=== PATIENT | male | born 1960 | race Caucasian/White ===

== ENCOUNTER → 2022-06-13 16:25 | Outpatient (CLI) | payer OTHER, SELFPAY | PROVIDERS: PCP Family Medicine; Referring Provider Family Medicine; Visit Provider Internal Medicine | DX: Z23 Encounter for immunization (principal) | CPT/HCPCS: 90471; 90686 ==

== ENCOUNTER → 2022-08-27 07:10 | Outpatient (CLI) | payer OTHER, SELFPAY ==
[2022-08-27 09:27] LABS: Add Manual Diff / Slide Review NO; Basophils Absolute Auto 0 /uL (0-100); Eosinophils Absolute Auto 100 /uL (0-450); Eosinophils Percent Auto 3.1 % (2-4); Hematocrit 41.4 % (41-53); Hemoglobin 14.1 g/dL (13.5-17.5); Lymphocytes Absolute Auto 1600 /uL (1100-4500); Lymphocytes Percent Auto 35.3 % (25-40); Mean Corpuscular HGB Conc 34.1 % (30-36); Mean Corpuscular Hemoglobin 29.8 PG (26-34); Mean Corpuscular Volume 87.4 fL (80-100); Monocytes Absolute Auto 600 /uL (0-900); Monocytes Percent Auto 12.2 % (3-14); Neutrophils Absolute Auto 2200 /uL (1500-7000); Neutrophils Percent Auto 48.4 % (50-75); Platelet Count 235 X10^3/uL (150-400); Red Blood Cell Count 4.73 X10^6/uL (4.5-5.9); Red Cell Distribution Width 14.9 % (11.6-14.8); White Blood Cell Count 4.5 X10^3/uL (4.5-11.0)
[2022-08-27 10:19] LABS: Alanine Aminotransferase 17 IU/L (<50); Albumin 4.3 g/dL (3.5-5.0); Albumin Globulin Ratio 1.7 (1.0-2.8); Alkaline Phosphatase 73 U/L (38-126); Aspartate Aminotransferase 24 IU/L (17-59); BUN Creatinine Ratio 19.4 (6-22); Bilirubin Total 0.7 mg/dL (0.2-1.3); Blood Urea Nitrogen 20 mg/dL (9-20); Calcium 9.3 mg/dL (8.4-10.2); Carbon Dioxide 28 mmol/L (22-32); Chloride 100 mmol/L (98-107); Cholesterol 220 mg/dL (140-199); Estimated Glomerular Filt Rate > 60 mL/min (>60); Globulin 2.6 g/dL (1.7-4.1); Glucose 92 mg/dL (80-110); HDL Cholesterol 77 mg/dL (40-60); HEMOLYSIS < 15 (0-50); LDL Cholesterol Calculated 131 mg/dL (<100); Potassium 4.6 mmol/L (3.4-5.1); Sodium 138 mmol/L (137-145); Total Protein 6.9 g/dL (6.3-8.2); Triglycerides 60 mg/dL (35-150)
[2022-08-27 10:50] LABS: Prostate Specific Antigen Scrn 4.53 ng/mL (0.1-4.0)
== END ==
PROVIDERS: PCP Family Medicine; Referring Provider Family Medicine; Visit Provider Family Medicine
DX: E78.5 Hyperlipidemia, unspecified (principal); I21.9 Acute myocardial infarction, unspecified; K21.9 Gastro-esophageal reflux disease without esophagitis; Z12.5 Encounter for screening for malignant neoplasm of prostate
CPT/HCPCS: 36415; 80053; 80061; 85025; G0103

== ENCOUNTER 2024-06-01 18:59 | Emergency (ER) | payer OTHER, SELFPAY ==
[2024-06-01 19:07] VITALS: BP 157/72; PULSE 67; RESP 16; TEMP 36.4; O2SAT 100; BMI 24.4
--- NOTE | 2024-06-01 21:13 | ED.BACK ---
HPI - Back Pain/Injury General Chief Complaint: Urogenital-Male Stated Complaint: back px, sent by [facility] triage nurse Time Seen by Provider: 06/01/24 20:37 Source: patient History of Present Illness HPI Narrative: Patient presents for 2 weeks of left-sided flank pain. States that pain is intermittent, worse with movement, [id number] medications do not improve this. Patient states that he was told by the [facility] advice line that he should come to the ER for evaluation. Denies difficulty urinating, fevers, other complaints at this time. Related Data Home Medications Medication Instructions Recorded Confirmed fluticasone propionate 50 1 spray intranasal DAILY 07/11/22 09/03/22 mcg/actuation nasal spray,suspension (Allergy Relief (fluticasone)) oxybutynin chloride 10 mg 10 mg PO TID 07/11/22 09/03/22 tablet,extended release 24 hr Lacto 21-Bifido [id number]-B12 [up4 PO 09/03/22 09/03/22 Probiotics Men's] magnesium PO 09/03/22 09/03/22 omega-3 fatty acids [Fish Oil] PO 09/03/22 09/03/22 Previous Rx's Medication Instructions Recorded sertraline 100 mg tablet 100 mg PO DAILY #90 tabs 10/28/22 tamsulosin 0.4 mg capsule 0.4 mg PO DAILY #90 caps 10/28/22 pantoprazole 40 mg tablet,delayed 40 mg PO DAILY #90 tabs 02/06/23 release bupropion HCl 300 mg 24 hr tablet, 300 mg PO QAM #90 tabs 04/15/23 extended release Allergies Allergy/AdvReac Type Severity Reaction Status Date / Time ampicillin Allergy Severe Anaphylaxis Verified 06/01/24 19:12 Penicillins Allergy Severe Anaphylaxis Verified 06/01/24 19:12 Patient History Medical History Screening for prostate cancer Hyperlipidemia Osteoarthritis (~1998) Depression (~1998) Stroke (~1988) Fractures Chronic back pain (~1984) Ankle pain (~1997) Mumps (~1966) Measles (~1966) Chicken pox (~1965) Genital warts (~1999) Benign prostatic hyperplasia (~1997) GERD (gastroesophageal reflux disease) (~1998) Ascending aortic aneurysm (~2018) Myocardial infarction (~1998) Cardiac arrhythmia (~1998) Melanoma (~1998) Surgical History Anesthesia S/P AAA repair (~2018) History of skin graft (~2017) History of lymph node biopsy (~1998) History of ankle surgery (~1997) History of tonsillectomy and adenoidectomy (~1967) Family History Father Dementia Mother Cancer Brother ALS (amyotrophic lateral sclerosis) Grandmother Stroke Grandfather Dementia Social History Smoking Status: Never smoker Smoking Status: Never smoker Substance Use Type: does not use Exam Initial Vital Signs Initial Vital Signs: Vital Signs Temperature 97.6 F 06/01/24 19:07 Pulse Rate 67 06/01/24 19:07 Respiratory Rate 16 06/01/24 19:07 Blood Pressure 157/72 H 06/01/24 19:07 Pulse Oximetry 100 06/01/24 19:07 Oxygen Delivery Method Room Air 06/01/24 19:07 Const: Awake, alert, no acute distress, nontoxic appearing Cardiac: regular rate, regular rhythm RESP: unlabored, clear bilaterally, no wheezing MSK back: No midline tenderness, left CVA tenderness Skin: Warm, Dry, intact, no rashes Neuro: AO x3, CN II-XII grossly intact, moves all extremities Course Orders Ordered: ED Orders 06/01/24 21:30 CBC Auto Diff [Complete Blood Count AUTO DIFF] Stat CMP [Comprehensive Metabolic Panel] Stat Vital Signs Vital signs: Vital Signs - 8 hr 06/01/24 19:07 06/01/24 21:40 Temperature 97.6 F Pulse Rate 67 67 Respiratory Rate 16 14 Blood Pressure 157/72 H 160/77 H Pulse Oximetry 100 99 Oxygen Delivery Method Room Air Room Air MDM - Back Pain/Injury Differential Diagnosis Differential diagnosis: Likely lumbar radiculopathy, sciatica, strain of lumbar region and renal colic Lab Data 06/01/24 21:30 06/01/24 21:30 Labs: Lab Results 06/01/24 Range/Units 21:30 WBC 5.0 (4.5-11.0) X10^3/uL RBC 4.73 (4.5-5.9) X10^6/uL Hgb 14.3 (13.5-17.5) g/dL Hct 41.4 (41-53) % MCV 87.5 (80-100) fL MCH 30.2 (26-34) PG MCHC 34.5 (30-36) % RDW 14.3 (11.6-14.8) % Plt Count 236 (150-400) X10^3/uL Neut % (Auto) 47.2 L (50-75) % Lymph % (Auto) 37.1 (25-40) % [place] % (Auto) 10.2 (3-14) % Eos % (Auto) 4.2 H (2-4) % Baso % (Auto) 1.3 (0-2) % Neut # (Auto) 2300 (3430-1299) /uL Lymph # (Auto) 1800 (3998-4039) /uL [place] # (Auto) 500 (0-900) /uL Eos # (Auto) 200 (0-450) /uL Baso # (Auto) 100 (0-100) /uL Sodium 136 L (137-145) mmol/L Potassium 4.4 (3.4-5.1) mmol/L Chloride 103 (98-107) mmol/L Carbon Dioxide 25 (22-32) mmol/L BUN 17 (9-20) mg/dL Creatinine 0.80 (0.66-1.25) mg/dL Estimated GFR > 60 (>60) mL/min BUN/Creatinine Ratio 21.3 (6-22) Glucose 86 (80-110) mg/dL Calcium 9.3 (8.4-10.2) mg/dL Total Bilirubin 0.6 (0.2-1.3) mg/dL AST 29 (17-59) IU/L ALT 23 (<50) IU/L Alkaline Phosphatase 66 (38-126) U/L Total Protein 7.2 (6.3-8.2) g/dL Albumin 4.3 (3.5-5.0) g/dL Globulin 2.9 (1.7-4.1) g/dL Albumin/Globulin Ratio 1.5 (1.0-2.8) Urine Dip Bedside Urine Glucose Negative Bedside Urine Bilirubin - Negative Bedside Urine Ketone - Negative Urine Specific [place] 1.015 Bedside Urine Occult Blood - Negative Bedside Urine pH 6.0 Bedside Urine Protein - Negative Bedside Urine Urobilinogen - Negative Bedside Urine Nitrite - Negative Bedside Urine Leukocytes - Negative Esterase MDM Narrative Medical decision making narrative: Well-appearing patient with 2 weeks of symptoms. Recommended blood work and CT scan, however patient declined imaging at this time stating that he had to be up in a couple of hours for an orientation shift. Patient consented to lab work, he stated that he would make an appointment with his primary care doctor about his symptoms and would talk about imaging at that time. Blood work, urinalysis unremarkable. Discharge Plan Departure Patient Disposition: Home Clinical Impression: Left flank pain Instructions: DI for Low Back Pain Activity Restrictions/Additional Instructions: Follow up with your primary care doctor to review labs and discuss possible imaging Prescriptions: No Action sertraline 100 mg tablet 100 mg PO DAILY Qty: 90 3RF tamsulosin 0.4 mg capsule 0.4 mg PO DAILY Qty: 90 3RF pantoprazole 40 mg tablet,delayed release (DR/EC) 40 mg PO DAILY Qty: 90 3RF bupropion HCl 300 mg tablet extended release 24 hr 300 mg PO QAM Qty: 90 2RF oxybutynin chloride 10 mg tablet extended release 24hr 10 mg PO TID fluticasone propionate [Allergy Relief (fluticasone)] 50 mcg/actuation spray,suspension 1 spray intranasal DAILY Rx Instructions: administer into each nostril omega-3 fatty acids [Fish Oil] PO magnesium PO Lacto 21-Bifido 7-[id number]-[id number]-B12 [up4 Probiotics Men's] PO Referrals: Cristóbal Tompkins DO [Primary Care Provider] - Stand Alone Forms: Patient Portal/API
--- NOTE | 2024-06-01 21:39 | PC.NURSE ---
patient did not want to stay for lab work. wants to follow up with his PCP.
[2024-06-01 21:40] VITALS: BP 160/77; PULSE 67; RESP 14; O2SAT 99
[2024-06-01 21:40] LABS: Add Manual Diff / Slide Review NO; Basophils Absolute Auto 100 /uL (0-100); Basophils Percent Auto 1.3 % (0-2); Eosinophils Absolute Auto 200 /uL (0-450); Eosinophils Percent Auto 4.2 % (2-4); Hematocrit 41.4 % (41-53); Hemoglobin 14.3 g/dL (13.5-17.5); Lymphocytes Absolute Auto 1800 /uL (1100-4500); Lymphocytes Percent Auto 37.1 % (25-40); Mean Corpuscular HGB Conc 34.5 % (30-36); Mean Corpuscular Hemoglobin 30.2 PG (26-34); Mean Corpuscular Volume 87.5 fL (80-100); Monocytes Absolute Auto 500 /uL (0-900); Monocytes Percent Auto 10.2 % (3-14); Neutrophils Absolute Auto 2300 /uL (1500-7000); Neutrophils Percent Auto 47.2 % (50-75); Platelet Count 236 X10^3/uL (150-400); Red Blood Cell Count 4.73 X10^6/uL (4.5-5.9); Red Cell Distribution Width 14.3 % (11.6-14.8)
[2024-06-01 21:52] LABS: Alanine Aminotransferase 23 IU/L (<50); Albumin 4.3 g/dL (3.5-5.0); Albumin Globulin Ratio 1.5 (1.0-2.8); Alkaline Phosphatase 66 U/L (38-126); Aspartate Aminotransferase 29 IU/L (17-59); BUN Creatinine Ratio 21.3 (6-22); Bilirubin Total 0.6 mg/dL (0.2-1.3); Blood Urea Nitrogen 17 mg/dL (9-20); Calcium 9.3 mg/dL (8.4-10.2); Carbon Dioxide 25 mmol/L (22-32); Chloride 103 mmol/L (98-107); Estimated Glomerular Filt Rate > 60 mL/min (>60); Globulin 2.9 g/dL (1.7-4.1); Glucose 86 mg/dL (80-110); HEMOLYSIS < 15 (0-50); Potassium 4.4 mmol/L (3.4-5.1); Sodium 136 mmol/L (137-145); Total Protein 7.2 g/dL (6.3-8.2)
== END 2024-06-01 21:44 | disposition home or self-care (01) ==
PROVIDERS: Emergency Provider Emergency Medicine; PCP Family Medicine
DX: R10.9 Unspecified abdominal pain (principal)
CPT/HCPCS: 80053; 81003; 85025; 99281; 99283

== ENCOUNTER → 2025-07-28 12:53 | Outpatient (CLI) | payer OTHER, SELFPAY ==
[2025-07-28 13:24] LABS: Add Manual Diff / Slide Review NO; Hematocrit 44.0 % (41-53); Hemoglobin 15.5 g/dL (13.5-17.5); Lymphocytes Absolute Auto 1200 /uL (1100-4500); Mean Corpuscular HGB Conc 35.3 % (30-36); Mean Corpuscular Hemoglobin 30.6 PG (26-34); Mean Corpuscular Volume 86.7 fL (80-100); Platelet Count 218 X10^3/uL (150-400)
[2025-07-28 14:02] LABS: Alanine Aminotransferase 27 IU/L (<50); Albumin 4.6 g/dL (3.5-5.0); Albumin Globulin Ratio 1.9 (1.0-2.8); Alkaline Phosphatase 70 U/L (38-126); Blood Urea Nitrogen 24 mg/dL (9-20); Calcium 9.6 mg/dL (8.4-10.2); Carbon Dioxide 29 mmol/L (22-32); Chloride 103 mmol/L (98-107); Cholesterol 189 mg/dL (140-199); Estimated Glomerular Filt Rate > 60 mL/min (>60); Globulin 2.4 g/dL (1.7-4.1); Glucose 95 mg/dL (70-99); HDL Cholesterol 81 mg/dL (40-60); HEMOLYSIS < 15 (0-50); Potassium 4.9 mmol/L (3.4-5.1); Sodium 139 mmol/L (137-145); Total Protein 7.0 g/dL (6.3-8.2); Triglycerides 56 mg/dL (35-150)
== END ==
PROVIDERS: PCP Family Medicine; Referring Provider Family Medicine; Visit Provider Family Medicine
DX: N40.0 Benign prostatic hyperplasia without lower urinary tract symptoms (principal); E78.5 Hyperlipidemia, unspecified; I21.9 Acute myocardial infarction, unspecified; Z12.5 Encounter for screening for malignant neoplasm of prostate
CPT/HCPCS: 80053; 80061; 85025; G0103